=== PATIENT | female | born 1970 | race Caucasian/White ===

== ENCOUNTER 2020-03-06 13:26 | Outpatient (CLI) | payer OTHER ==
[2020-03-06] MEDS ORDERED: PRAV80TA2 PO (15:48)
[2020-03-06] MEDS ORDERED: LEVO75TA5 PO (15:48)
[2020-03-06] MEDS ORDERED: MELO15TA24 PO (15:48)
== END 2020-03-06 23:59 | disposition home or self-care (01) ==
LOC: STAR 13:26
PROVIDERS: ATTEND Podiatrist Foot & Ankle Surgery
DX: Z02.9 Encounter for administrative examinations, unspecified (principal)

== ENCOUNTER 2020-03-15 11:25 | Day surgery (SDC) | payer OTHER ==
[~2020-03-15] VITALS: Ht 168.9 cm; Wt 103.6 kg
[~2020-03-15 11:25] MED LIST: BUPIVACAINE/PF 0.5% ONE; EPINEPHRINE 1 MG/ML, 1ML ONE; LEVO75TA5 PO; MELO15TA24 PO; PRAV80TA2 PO
[2020-03-15] MEDS ORDERED: LACTATED RINGERS 1,000 ML IV SCH (11:48)
[2020-03-15 11:51] VITALS: BP 126/82
[2020-03-15] MEDS ORDERED: CHLORHEXIDINE 15 ML UDC ONE (11:59)
[2020-03-15] MEDS ORDERED: CHLORHEXIDINE 15 ML UDC MM ONE (12:00)
[2020-03-15 12:25] LABS: HCG UR SG 1.024 (1.003-1.030)
[2020-03-15] MEDS ORDERED: CEFAZOLIN 1,000 MG ONE (13:21)
[2020-03-15] MEDS ORDERED: PROPOFOL 10 MG/ML, 20ML ONE (13:21)
[2020-03-15] MEDS ORDERED: SUCCINYLCHOLINE 20 MG/ML, 10ML ONE (13:21)
[2020-03-15] MEDS ORDERED: ONDANSETRON 2MG/ML, 2ML ONE (13:21)
[2020-03-15] MEDS ORDERED: MIDAZOLAM 1 MG/ML, 2ML ONE (13:24)
[2020-03-15] MEDS ORDERED: DEXAMETHASONE 4 MG/ML, 5ML ONE (13:25)
[2020-03-15] MEDS ORDERED: FENTANYL PF 100 MCG/2ML IV PRN (14:00)
[2020-03-15] MEDS ORDERED: ONDANSETRON 2MG/ML, 2ML IVPush PRN (14:00)
[2020-03-15] MEDS ORDERED: OXYcodone 5 MG/5 ML ORAL.SOL UDC PO PRN (14:00)
[2020-03-15] MEDS ORDERED: PROMETHAZINE 25 MG/ML, 1ML IV PRN (14:00)
[2020-03-15] MEDS ORDERED: LABETALOL 5MG/ML, 20ML IV PRN (14:00)
[2020-03-15] MEDS ORDERED: hydrALAzine 20 MG/ML, 1ML IV PRN (14:00)
[2020-03-15] MEDS ORDERED: DIAZEPAM 5 MG/ML, 2ML IV PRN ×2 (14:00)
[2020-03-15] MEDS ORDERED: ALBUTEROL SULFATE 2.5 MG/3 ML NPPB PRN (14:00)
[2020-03-15] MEDS ORDERED: METOCLOPRAMIDE 5 MG/ML, 2ML IV PRN (14:00)
[2020-03-15] MEDS ORDERED: MEPERIDINE/PF 25MG/0.5ML IVPush PRN (14:00)
[2020-03-15] MEDS ORDERED: HYDROmorphone 1 MG/ML, 1ML INJ IV PRN (14:00)
[2020-03-15] MEDS ORDERED: KETOROLAC 30 MG/1 ML IV PRN (14:00)
== END 2020-03-15 17:50 | disposition home or self-care (01) ==
LOC: OUT 11:25
PROVIDERS: ATTEND Podiatrist Foot & Ankle Surgery
DX: D48.5 Neoplasm of uncertain behavior of skin (principal); Z11.59 Encounter for screening for other viral diseases; L91.0 Hypertrophic scar; M72.2 Plantar fascial fibromatosis; G47.33 Obstructive sleep apnea (adult) (pediatric); Z79.890 Hormone replacement therapy; Z79.1 Long term (current) use of non-steroidal anti-inflammatories (NSAID); Z79.899 Other long term (current) drug therapy
CPT/HCPCS: 11421; 20550; 36415; 81025; 87635; 88305; 88331; J0171; J0330; J0690; J1100; J2250; J2405; J2704; J7120